=== PATIENT | male | born 1965 | race Two or more races ===

== ENCOUNTER 2017-01-18 17:03 | Emergency (ER) | payer OTHER, MEDICAID ==
[2017-01-18 17:11] VITALS: BP 185/82; BMI 31.8
[2017-01-18] MEDS ORDERED: ADACEL TDaP IM ONE ×2 (18:18→18:22)
[2017-01-18] MEDS ORDERED: BACTROBAN OINT TOP ONE (18:18)
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
[2017-01-18] MEDS ORDERED: BACITRACIN ZINC ONE (18:21)
== END 2017-01-18 18:30 | disposition home or self-care (01) ==
LOC: ER 17:18
PROC: 0YQH0ZZ Repair Right Lower Leg, Open Approach (ICD-10-PCS; principal; 2017-01-18)
DX: S81.819A Laceration without foreign body, unspecified lower leg, initial encounter (principal); W18.49XA Other slipping, tripping and stumbling without falling, initial encounter; Y92.9 Unspecified place or not applicable
CPT/HCPCS: 90471; 99282